=== PATIENT | female | born 1995 | race Caucasian/White ===

== ENCOUNTER 2017-02-16 18:11 | Emergency (ER) | payer MEDICAID ==
[~2017-02-16] VITALS: Ht 170.2 cm; Wt 63.5 kg
[~2017-02-16 18:11] MED LIST: ALBU8.5H5 INH; IBUP-1222 PO; PREN-1 PO
[2017-02-16] MEDS ORDERED: ONDANSETRON 2MG/ML, 2ML IVPush ONE (18:30)
[2017-02-16] MEDS ORDERED: SODIUM CHLORIDE 0.9% 1,000ML IVBOLUS ONE (18:30)
[2017-02-16 18:53] LABS: HEMATOCRIT 46.7 % (34.6-47.8); HEMOGLOBIN 15.4 g/dL (11.7-16.4); WHITE BLOOD COUNT 8.9 x10^3/uL (3.4-10)
[2017-02-16 19:05] LABS: BLOOD UREA NITROGEN 15 mg/dL (7-18)
[2017-02-16 19:22] LABS: PATH.CAST-FLAG NOT PRESENT; SPERM-FLAG NOT PRESENT; SRC-FLAG NOT PRESENT; XTAL-FLAG NOT PRESENT; YLC-FLAG NOT PRESENT
[2017-02-16] MEDS ORDERED: CEFTRIAXONE 1,000 MG ONE (21:20)
[2017-02-16] MEDS ORDERED: CEFTRIAXONE 1,000 MG IM ONE (21:30)
[2017-02-16 21:45] VITALS: BP 112/64
== END 2017-02-16 21:49 | disposition home or self-care (01) ==
LOC: ED 20:40
DX: R10.30 Lower abdominal pain, unspecified (principal); R11.2 Nausea with vomiting, unspecified; J45.909 Unspecified asthma, uncomplicated
CPT/HCPCS: 36415; 76830; 80048; 81001; 82040; 84702; 85025; 87086; 87210; 87491; 87591; 87808; 93005; 96360; 96361; 96372; 99285; J0696; J7030